=== PATIENT | male | born 1960 | race Two or more races ===

== ENCOUNTER 2022-01-05 07:41 | Day surgery (SDC) | payer OTHER | END 2022-01-05 13:30 | disposition home or self-care (01) | LOC: AMB-ENDOS 07:41 | PROVIDERS: ATTEND Surgery | DX: D12.3 Benign neoplasm of transverse colon (principal); K64.2 Third degree hemorrhoids; K57.30 Diverticulosis of large intestine without perforation or abscess without bleeding; E78.5 Hyperlipidemia, unspecified ==